=== PATIENT | male | born 1930 | race Caucasian/White ===

== ENCOUNTER 2017-01-17 05:12 | Emergency (ER) | payer MEDICARE, BC ==
[~2017-01-17] VITALS: Ht 182.9 cm; Wt 73.0 kg
[~2017-01-17 05:12] MED LIST: ACET650T17 PO; ALBU8.5H3 INH; CHOL20002 PO; CYAN1TAB29 PO; DOCU-30 PO; ENOX40SY4; FLUT1DIS INH; LOVA40TA PO; MULT-297 PO; OMEP-110 PO; POLY17PO5 PO; POTA10TA PO; PYRI100T2 PO; TRAM-28 PO; TRAV5DRO EACHEYE
[2017-01-17] MEDS ORDERED: AMLO10TA2 PO (05:45)
[2017-01-17] MEDS ORDERED: HYDR12.58 PO (05:46)
[2017-01-17] MEDS ORDERED: BACITRACIN ZINC OINT 500U/GM, 0.9 GM ONE ×2 (06:31→06:36)
[2017-01-17 07:53] VITALS: BP 140/78
== END 2017-01-17 07:55 | disposition home or self-care (01) ==
LOC: ED 06:06
DX: S00.01XA Abrasion of scalp, initial encounter (principal); S00.411A Abrasion of right ear, initial encounter; I10 Essential (primary) hypertension; W01.0XXA Fall on same level from slipping, tripping and stumbling without subsequent striking against object, initial encounter; Y93.89 Activity, other specified; Y92.89 Other specified places as the place of occurrence of the external cause; Y99.8 Other external cause status
CPT/HCPCS: 70450; 93005; 99284